=== PATIENT | female | born 1955 | race Caucasian/White ===

== ENCOUNTER 2018-07-31 22:57 | Emergency (ER) | payer OTHER ==
[~2018-07-31] VITALS: Ht 162.6 cm; Wt 66.5 kg
[~2018-07-31 22:57] MED LIST: AMOX1TAB10 PO; HYDR-4011 PO
[2018-07-31 23:03] VITALS: Ht 162.6 cm; Wt 66.5 kg
[2018-08-01] MEDS ORDERED: METOCLOPRAMIDE 10 MG INJ IV STA (02:59)
[2018-08-01] MEDS ORDERED: SOD CHLORIDE 0.9% 1,000 ML IV STA (02:59)
[2018-08-01] MEDS ORDERED: DIPHENHYDRAMINE 50 MG INJ IV STA (02:59)
--- NOTE | 2018-08-01 04:18 | ERD ---
ER Documentation Chief Complaint Chief Complaint frontoparietal RAMIREZ x 10 days,denies injury,not on any meds HPI This is a 62-year-old female presents to the ER for evaluation of a headache. The patient localizes the headache to the front portion of her scalp and describes it as a pressure-like sensation behind the right eye worse with light and associated with mild nausea. She has not vomited but was concerned because she has not had a migraine in a long period of time he came to the ER today for evaluation of her symptoms. The patient denies any numbness or tingling denies any chest pain or shortness of breath associated with this relation of symptoms. ROS All systems reviewed and are negative except as per history of present illness. Medications Home Meds Discontinued Scripts Hydrocodone/Acetaminophen ([place] 5-325 Tablet) 1 Each Tablet, 1 TAB PO Q6H PRN for PAIN, #20 TAB Prov:VEGA CARNEY PA-C 06/26/16 Amoxicillin/Potassium Clav (Amox-Clav 875-125 mg Tablet) 875-125 mg Tab, 1 TAB PO BID for 10 Days, #20 TAB Prov:VEGA CARNEY PA-C 06/26/16 Allergies Allergies: Coded Allergies: No Known Allergy (Unverified , 08/01/18) PMhx/Soc History of Surgery: Yes (2 CS, bladder) Anesthesia Reaction: No Hx Neurological Disorder: No Hx Respiratory Disorders: No Hx Cardiac Disorders: No Hx Psychiatric Problems: No Hx Miscellaneous Medical Probl: No Hx Alcohol Use: No Hx Substance Use: No Hx Tobacco Use: No Smoking Status: Never smoker Physical Exam Vitals Vital Signs Date Temp Pulse Resp B/P (MAP) Pulse Ox O2 O2 Flow FiO2 Time Delivery Rate 08/01/18 98.0 66 15 155/98 100 Room Air 02:21 (117) 07/31/18 97.1 78 18 172/76 100 23:03 (108) Physical Exam Const: No acute distress Head: Atraumatic Eyes: Normal Conjunctiva ENT: Normal External Ears, Nose and Mouth. Neck: Full range of motion. No meningismus. Resp: Clear to auscultation bilaterally Cardio: Regular rate and rhythm, no murmurs Abd: Soft, non tender, non distended. Normal bowel sounds Skin: No petechiae or rashes Back: No midline or flank tenderness Ext: No cyanosis, or edema Neur: Awake and alert Psych: Normal Mood and Affect Result Diagram: 08/01/18 0325 08/01/18 0325 Results 24 hrs Laboratory Tests Test 08/01/18 03:25 White Blood Count 6.1 10^3/ul Red Blood Count 3.51 10^6/ul Hemoglobin 10.9 g/dl Hematocrit 33.3 % Mean Corpuscular Volume 94.9 fl Mean Corpuscular Hemoglobin 31.1 pg Mean Corpuscular Hemoglobin Concent 32.7 g/dl Red Cell Distribution Width 11.5 % Platelet Count 261 10^3/UL Mean Platelet Volume 10.3 fl Immature Granulocytes % 0.500 % Neutrophils % 46.6 % Lymphocytes % 39.5 % Monocytes % 8.2 % Eosinophils % 4.4 % Basophils % 0.8 % Nucleated Red Blood Cells % 0.0 /100WBC Immature Granulocytes # 0.030 10^3/ul Neutrophils # 2.8 10^3/ul Lymphocytes # 2.4 10^3/ul Monocytes # 0.5 10^3/ul Eosinophils # 0.3 10^3/ul Basophils # 0.1 10^3/ul Nucleated Red Blood Cells # 0.0 10^3/ul Prothrombin Time 10.9 Sec Prothrombin Time Ratio 0.9 INR International Normalized Ratio 0.77 Activated Partial Thromboplast Time 30.6 Sec Sodium Level 142 mmol/L Potassium Level 3.7 mmol/L Chloride Level 108 mmol/L Carbon Dioxide Level 28 mmol/L Anion Gap 6 Blood Urea Nitrogen 15 mg/dl Creatinine 0.76 mg/dl Est Glomerular Filtrat Rate mL/min > 60 mL/min Glucose Level 106 mg/dl Calcium Level 10.0 mg/dl Current Medications Medications Dose Sig/Marcella Start Time Status Last (Trade) Ordered Route PRN Stop Time Admin Dose Reason Admin Sodium 1,000 ml @ Q1H STAT 08/01/18 DC 08/01/18 Chloride 1,000 mls/hr IV 02:59 08/01/18 03:29 03:58 10 mg ONCE STAT 08/01/18 DC 08/01/18 Metoclopramid IV 02:59 08/01/18 03:29 e HCl 03:00 (Reglan) 25 mg ONCE STAT 08/01/18 DC 08/01/18 Diphenhydrami IV 02:59 08/01/18 03:29 ne HCl 03:00 (Benadryl) Procedures/MDM CT brain without: No definite acute intracranial abnormality including no evidence of intracranial hemorrhage, mass effect or hydrocephalus. No source of the patient's headache detected, further workup for which could be based on clinical grounds and could include further evaluation by MRI as clinically warranted. Mild generalized volume loss and presumed chronic small vessel ischemic changes. This 62-year-old female presents to the ER for evaluation of a headache. On my exam the patient was alert and oriented to person place and time with no focal neurological deficits. She had no meningeal signs and was alert and oriented to person place and time. Lab work was obtained which is within normal limits and a CT of the brain was also obtained given the fact that the patient has not had migraines like this in some time now. CT the brain is normal, lab work is within normal limit and the patient was given a migraine cocktail. Upon my reevaluation the patient states that her headache is completely resolved. The patient states she is feeling much better at this time is requesting to go home. The patient will be discharged at this time with a prescription for Imitrex and I did advise her to follow with her primary care physician for continuous monitoring and possible neurology consult for migraines. Patient presents with a headache consistent with previous migraine headaches. Considered in the differential diagnosis includes SAH, meningitis, and intracranial concerns. However, the patient's presentation is not consistent with these more significant concerns. After symptomatic management, the patient is much improved, neurologically normal, and appropriate for outpatient management. Departure Diagnosis: Primary Impression: Migraine-cluster headache syndrome Additional Impression: Migraine headache Condition: Stable SALVADOR PARRISH DO Aug 01, 2018 04:18
[2018-08-01] MEDS ORDERED: SUMA25TA34 PO (04:19)
[2018-08-01 05:50] VITALS: BP 127/82; PULSE 68; RESP 15
== END 2018-08-01 05:50 | disposition home or self-care (01) ==
LOC: E/R 22:57
DX: G44.009 Cluster headache syndrome, unspecified, not intractable (principal); R40.2142 Coma scale, eyes open, spontaneous, at arrival to emergency department; R40.2362 Coma scale, best motor response, obeys commands, at arrival to emergency department; R40.2252 Coma scale, best verbal response, oriented, at arrival to emergency department; M79.602 Pain in left arm
CPT/HCPCS: 70450; 80048; 85025; 85610; 85730; J1200; J2765; J7030; 36415; 96374; 96375